=== PATIENT | female | born 1940 | race Caucasian/White ===

== ENCOUNTER 2023-11-13 18:20 | Inpatient (IN) | payer OTHER ==
[~2023-11-13] VITALS: Ht 162.6 cm; Wt 67.3 kg
[~2023-11-13 18:20] MED LIST: ATEN-60 PO; ENO40SY SC; WARF-66 PO
[2023-11-13 21:00] VITALS: BP 172/87; PULSE 68; RESP 20; TEMP 97.7; O2SAT 97
[2023-11-13 21:24] VITALS: PULSE 68; RESP 20; O2SAT 97
[2023-11-13 21:26] VITALS: BP 172/87; PULSE 68; RESP 20; TEMP 97.7; O2SAT 97
[2023-11-13] MEDS ORDERED: HYDROcodone-ACET 5/325MG TAB PO PRN (23:00)
[2023-11-13] MEDS: hydrALAZINE HCL 20 MG/ML VL IV SCH (23:40)
[2023-11-14] VITALS (7 sets, daily range): BP systolic 102–134; BP diastolic 49–73; PULSE 68–88; RESP 18–20; TEMP 36.7; O2SAT 94–97
[2023-11-14] MEDS ORDERED: ONDANSETRON HCL 4 MG/2 ML VIAL IV PRN (00:30)
[2023-11-14] MEDS ORDERED: ACETAMINOPHEN 325 MG TAB PO PRN (00:30)
[2023-11-14] MEDS: ATORVASTATIN 20 MG TAB PO SCH (01:18)
[2023-11-14 06:16] LABS: Calcium 9.4 mg/dL (8.7-10.4); Chloride 110 mmol/L (98-107); Potassium 3.8 mmol/L (3.5-5.1); Sodium 142 mmol/L (136-145)
[2023-11-14 06:17] LABS: Anion Gap 8 (5-15); Carbon Dioxide 24 mmol/L (20-30)
[2023-11-14 06:22] LABS: Glucose 112 mg/dL (74-106)
[2023-11-14 06:23] LABS: Basophils # (auto) 0 10 ^3/uL (0-0.2); Basophils % (auto) 0.2 % (0.0-2.0); Blood Urea Nitrogen 17 mg/dL (9-23); Eosinophils # (auto) 0 10 ^3/uL (0-0.8); Eosinophils % (auto) 0.6 % (0.0-7.0); Hemoglobin 14.5 g/dL (12.2-16.2); LDL Cholesterol 160 mg/dL (< 100); Lymphocytes # (auto) 1.5 10 ^3/uL (0.4-5.4); Lymphocytes % (auto) 24.4 % (10.0-50.0); Mean Corpuscular Hemoglobin 31.6 pg (28.0-32.0); Mean Corpuscular Hgb Conc. 34.4 g/dL (32.0-36.0); Mean Corpuscular Volume 91.8 fL (80.0-100.0); Monocytes # (auto) 0.4 10 ^3/uL (0-1.3); Neutrophils # (auto) 4.3 10 ^3/uL (1.6-8.6); Neutrophils % (auto) 67.8 % (37.0-80.0); Red Blood Cells 4.57 10^6/uL (4.0-5.20); Red Cell Distribution Width 13.9 % (11.8-14.3); Triglycerides 126 mg/dL (< 150); White Blood Cell 6.3 10^3/uL (4.4-10.8)
[2023-11-14 06:25] LABS: Cholesterol 234 mg/dL (< 200); HDL Cholesterol 58 mg/dL (40-59)
[2023-11-14] MEDS: ATENOLOL 25 MG TAB PO SCH (09:34)
[2023-11-14] MEDS: ASPirin 81 mg TAB PO SCH (09:34)
[2023-11-14] MEDS: FAMOTIDINE 20 MG TAB PO SCH (09:34)
[2023-11-14] MEDS ORDERED: ATOR20TA50 PO (14:13)
== END 2023-11-14 18:50 | disposition home health service (06) | DRG 305 ==
LOC: TELE-WESTW 20:55
PROVIDERS: ADMIT Nurse Practitioner Family; ATTEND Internal Medicine
DX: I16.0 Hypertensive urgency (principal); I10 Essential (primary) hypertension; E78.5 Hyperlipidemia, unspecified; Z86.718 Personal history of other venous thrombosis and embolism; Z87.891 Personal history of nicotine dependence
CPT/HCPCS: 36415; 70551; 80048; 80061; 83036; 85025; 87081; 97116; 97163; 97530; G0378

== ENCOUNTER 2024-02-27 18:49 | Emergency (ER) | payer OTHER ==
[~2024-02-27] VITALS: Ht 162.6 cm; Wt 69.6 kg
[~2024-02-27 18:49] MED LIST changes: +ATOR20TA50 PO; -ENO40SY SC
--- NOTE | 2024-02-27 19:16 | ED.PDOC ---
Vamshi. trauma (HPI) HPI Comments 83 y.o female presents to the ED for a chief complaint of left wrist pain s/p trip and fall incident earlier today. Patient reports she was getting ready to walk her dogs, got up and her cat ran across her legs, causing her to lose her balance and fall onto her left side. Patient denies any head injuries, dizziness or lightheadedness. Patient has limited ROM to left wrist but no deformities noted. Time Seen by MD: 19:11 Reviewed notes: Nurses Notes, Medications, Allergies Allergies: Coded Allergies: NO KNOWN ALLERGIES (Unverified , 01/02/15) Home Meds Active Scripts Atorvastatin Calcium (ATORVASTATIN CALCIUM) 20 Mg Tab, 40 MG PO HS, #60 TAB Prov:TOMEKA ANTONIO MD 11/14/23 Reported Medications Atenolol (Atenolol) 25 Mg Tab, 1 TAB PO DAILY, #30 TAB 5 Refills 01/02/15 Warfarin Sodium (Warfarin Sodium) 5 Mg Tab, 5 MG PO DAILY for 30 Days, MG 01/02/15 Information Source: Patient Mode of Arrival: Ambulatory Severity: Moderate Timing: Hours Duration: Since onset Location: (L) Wrist Mechanism: Fall Past Medical History PAST MEDICAL HISTORY: HTN Past Medical History (Other): blood disorder Surgical History (Other): bladder and cyst removal [employer]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 History Family History Family History: Reviewed,noncontributory to illness Social History Smoker: Non-Smoker Alcohol: Denies ETOH Use Drugs: Denies Drug Use Lives In: Home Constitutional: denies: chills, diaphoresis, fatigue, fever, malaise, sweats, weakness, others EENTM: denies: blurred vision, double vision, ear bleeding, ear discharge, ear drainage, ear pain, ear ringing, eye pain, eye redness, hearing loss, mouth pain, mouth swelling, nasal discharge, nose bleeding, nose congestion, nose pain, photophobia, tearing, throat pain, throat swelling, voice changes, others Respiratory: denies: cough, hemoptysis, orthopnea, SOB at rest, shortness of breath, SOB with excertion, stridor, wheezing, others Cardiovascular: denies: chest pain, dizzy spells, diaphoresis, Dyspnea on exertion, edema, irregular heart beat, left arm pain, lightheadedness, palpitations, PND, syncope, others Gastrointestinal: denies: abdomen distended, abdominal pain, blood streaked bowels, constipated, diarrhea, dysphagia, difficulty swallowing, hematemesis, melena, nausea, poor appetite, poor fluid intake, rectal bleeding, rectal pain, vomiting, others Genitourinary: denies: abnormal vagina bleeding, burning, dyspareunia, dysuria, flank pain, frequency, hematuria, incontinence, pain, , vagina disc harge, urgency, others Neurological: denies: dizziness, fainting, headache, left sided numbness, left sided weakness, numbness, paresthesia, pre-existing deficit, right sided numbness, right sided weakness, seizure, speech problems, tingling, tremors, weakness, others Musculoskeletal: reports: others (left wrist pain ); denies: back pain, gout, joint pain, joint swelling, muscle pain, muscle stiffness, neck pain Integumetry: denies: bruises, change in color, change in hair/nails, dryness, laceration, lesions, lumps, rash, wounds, others Allergic/Immunocompromised: denies: Difficulty Healing, Frequent Infections, Hives, Itching, others Hematologic/Lymphatic: denies: anemia, blood clots, easy bleeding, easy bruising, swollen glands, others Endocrine: denies: excessive hunger, excessive sweating, excessive thirst, excessive urination, flushing, intolerance to cold, intolerance to heat, unexplained weight gain, unexplained weight loss, others Psychiatric: denies: anxiety, bipolar disorder, depression, hopeless, panic disorder, schizophrenia, sleepless, suicidal, others All Other Systems: Reviewed and Negative Physical Exam General Appearance: Moderate Distress HEENT: Normal ENT Inspection, Pharynx Normal, TMs Normal Neck: Full Range of Motion, Non-Tender, Normal, Normal Inspection Respiratory: Chest Non-Tender, Lungs Clear, No Accessory Muscle Use, No Respiratory Distress, Normal Breath Sounds Cardiovascular: No Edema, No JVD, No Murmur, No Gallop, Normal Peripheral Pulses, Regular Rate/Rhythm Breast Exam: Deferred Gastrointestinal: No Organomegaly, Non Tender, No Pulsatile Mass, Normal Bowel Sounds, Soft Genitalia: Deferred Pelvic: Deferred Rectal: Deferred Extremities: No calf tenderness, Normal capillary refill, Normal inspection, Normal range of motion, Non-tender, No pedal edema Musculoskeletal : Location: Left Extremity Location: Other Apperance: Swelling, Limited ROM, Tenderness: Moderate Neurologic: Alert, 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 Was a procedure done?: No Differential Diagnosis Multiple Trauma: Fractures, Contusion X-Ray, Labs, Meds, VS Vital Signs Date Time Temp Pulse Resp B/P (MAP) Pulse Ox O2 Delivery O2 Flow Rate FiO2 02/27/24 19:13 99.7 81 16 194/109 (137) 98 X-ray of the left wrist shows: FINDINGS/IMPRESSION: Mildly displaced fracture of the styloid process of the ulna. Impaction fracture distal radius. With minimal displacement. At this time, the patient was placed in a sugar-tong splint The patient was then placed in a sling. The patient will follow up with the primary care doctor The patient was told to take ibuprofen for the pain The patient will return to the emergency department's the condition worsens. The patient will be referred to the orthopedic surgeon. Images Reviewed?: Images reviewed and evaluated by me Time of 1ST Reevaluation: 19:16 Reevaluation 1ST: Unchanged Patient Education/Counseling: Diagnosis, Treatment, Prognosis, Need For Follow Up Family Education/Counseling: No Family Present Departure 1 Departure Time of Disposition: 20:15 Impression: Primary Impression: Left wrist fracture Qualified Codes: S62.102A - Fracture of unspecified carpal bone, left wrist, initial encounter for closed fracture Disposition: HOME / SELF CARE / HOMELESS Condition: Fair Discharged With: Self Critical Care Note Critical Care Time?: No Stability Stability form required: No I personally scribed for MARIA INES DANIELS MD ([email or web address]) on 02/27/24 at 19:16. Electronically submitted by Dalia Hernandes ([facility]). MARIA INES DANIELS MD Feb 27, 2024 19:16
--- NOTE | 2024-02-27 19:57 | DVH ---
CLINICAL INDICATION: pain TECHNIQUE: 3 radiographic views of the left wrist were obtained. Comparison: None FINDINGS/IMPRESSION: Mildly displaced fracture of the styloid process of the ulna. Impaction fracture distal radius. With minimal displacement.
[2024-02-27] MEDS: HYDROcodone-ACET 5/325MG TAB PO ONE (21:17)
[2024-02-27 21:24] VITALS: BP 188/94; PULSE 78; RESP 16; TEMP 98.1; O2SAT 97
== END 2024-02-27 21:46 | disposition home or self-care (01) ==
LOC: ER 18:49
DX: S52.502A Unspecified fracture of the lower end of left radius, initial encounter for closed fracture (principal); S52.612A Displaced fracture of left ulna styloid process, initial encounter for closed fracture; I10 Essential (primary) hypertension; Z79.01 Long term (current) use of anticoagulants; Z79.899 Other long term (current) drug therapy; W01.0XXA Fall on same level from slipping, tripping and stumbling without subsequent striking against object, initial encounter; Y93.89 Activity, other specified; Y92.89 Other specified places as the place of occurrence of the external cause; Y99.8 Other external cause status
CPT/HCPCS: 29125; 73110

== ENCOUNTER 2024-09-08 08:46 | Day surgery (SDC) | payer OTHER ==
[2024-09-08] VITALS (7 sets, daily range): BP systolic 106–191; BP diastolic 51–85; PULSE 60–71; RESP 12–18; O2SAT 92–98
[~2024-09-08] VITALS: Ht 162.6 cm; Wt 68.9 kg
[~2024-09-08 08:46] MED LIST changes: +BACL20TA PO; +CHOL20007 PO; +GABA-1250 PO; +NITR0.4S29 SL; +RANO500T3 PO
[2024-09-08] MEDS: ANGIOMAX 250 MG VIAL IV ONE (10:44)
[2024-09-08] MEDS: VERAPAMIL 2.5MG/ML INJ 2ML VIAL IV ONE (10:44)
[2024-09-08] MEDS: fentaNYL CITRATE 100 MCG/2 ML VL ONE (10:44)
[2024-09-08] MEDS: HEPARIN SODIUM (PORCINE) 5000 UNITS/ML 1ML VIAL ONE (10:44)
[2024-09-08] MEDS: SODIUM CHL 0.9% 0 ML ONE (10:45)
[2024-09-08] MEDS: LIDOCAINE 2%HCL (LOCAL ANESTH.) INJ 20ML MDV ONE (10:45)
[2024-09-08] MEDS: MIDAZOLAM HCL 2MG/2ML 2ml VIAL (1mg/ml) ONE (10:45)
[2024-09-08] MEDS: IODIXANOL 320MG/ML 100ML BTL IV ONE (10:53)
--- NOTE | 2024-09-08 11:37 | DVHOP2 ---
Operative Report - 2 Report Details Date: 09/08/24 Preop Diagnosis: CAD Postop Diagnosis: Normal coronaries Surgeon: Muriel Murray MD Anesthesiologist: Conscious sedation Anesthesia: Mac, Local Consent: The patient was informed of the risks and benefits of the procedure. These include but are not limited to complications of anesthesia, postoperative infection, incomplete relief of symptoms, recurrence of symptoms, damage to blood vessels, nerves and tendons, deep venous thrombosis, pulmonary embolism and possible need for repeat surgery in the future. Complications: No complications Findings: Normal coronaries. Normal LV function. Normal end-diastolic pressures at rest Indications for Surgery: Abnormal stress test. Chest pain. Name of Procedure Performed Left heart catheterization bilateral cine coronary angiography. Left ventriculography. Procedure Details Procedure Details: Prior local anesthesia with 2% lidocaine to the right wrist and full informed consent obtained the patient was prepped and draped in usual fashion followed by placement of a six Khmer sheath into the right radial artery through which six Khmer Tabatha catheters were used to cannulate both right and left coronary ostia and a six Khmer pigtail catheter was used for ventriculography no complications Aortic blood pressure was 110/70 end-diastolic pressure was 16 gradient across the aortic valve on pullback. Coronary anatomy. RCA is large dominant vessel it is normal in its proximal mid and distal segments PDA and posterolateral branches are normal. Left main is large and normal. Left anterior descending is a large vessel is normal its proximal mid and distal segments. Diagonals and septals are normal. The circumflex is large with two marginals free of significant disease. Ventriculography in the SMITH projection shows an EF of 60%. Impression: Normal left ventricular end-diastolic pressure at rest. Normal left ventricular ejection fraction at rest. No significant coronary artery disease. Recommendations: Medical therapy is warranted continue risk factor modification. Condition Good Disposition Home Date of Service: September 08, 2024 Billing Provider: MURIEL MURRAY Sr., MD Cardiology Common Codes: 80735-ZVLHCOP INP/OBS CARE (High) Cardiology Procedure Codes: 79525-MBSI HEART CATH W/INTRA INJ MURIEL MURRAY Sr., MD September 08, 2024 11:37
== END 2024-09-08 14:18 | disposition home or self-care (01) ==
LOC: CATH 08:46
PROVIDERS: ATTEND Internal Medicine
DX: R07.9 Chest pain, unspecified (principal); I25.10 Atherosclerotic heart disease of native coronary artery without angina pectoris; I13.0 Hypertensive heart and chronic kidney disease with heart failure and stage 1 through stage 4 chronic kidney disease, or unspecified chronic kidney disease; Z86.73 Personal history of transient ischemic attack (TIA), and cerebral infarction without residual deficits; Z86.718 Personal history of other venous thrombosis and embolism; F33.2 Major depressive disorder, recurrent severe without psychotic features; I47.10 Supraventricular tachycardia, unspecified; I50.9 Heart failure, unspecified; N18.2 Chronic kidney disease, stage 2 (mild); E78.00 Pure hypercholesterolemia, unspecified; Z79.899 Other long term (current) drug therapy; Z79.01 Long term (current) use of anticoagulants; Z98.890 Other specified postprocedural states
CPT/HCPCS: 93458; C1769; C1894; J1644; J2250; J3010; J7030; Q9967; 99152